=== PATIENT | male | born 1960 | race Caucasian/White ===

== ENCOUNTER 2023-04-16 06:53 | Observation (INO) ==
--- NOTE | 2023-04-06 10:13 | Anesthesiology Consultation ---
Date of Service April 06, 2023 Assessment & Plan (1) Encounter for pre-operative examination: - COVID screening: Per assessment on 04/03: No known COVID-19 positive contacts or current COVID-19 related symptoms. Travel screen negative. Patient vaccinated. At surgeon discretion if preop Covid testing being done. - Outpatient joint assessment: Pt currently scheduled for inpatient pathway. If surgeon requests review for outpatient joint pathway, patient is an acceptable candidate for outpatient joint program from anesthesia standpoint. Chart Review Chart Review: Acceptable Risk for Surgery and Patient NOT seen in Pre Admission Testing History Surgery Operation Date: 04/16/23 07:15 Proposed Procedures p Left Anatomic Total Shoulder Replacement, Open Biceps Tenodesis - Cole Olivia MD Height/Weight Height: 6 ft 2 in Weight: 113.398 kg Allergies Allergy/AdvReac Type Severity Reaction Status Date / Time Penicillins Allergy Unknown Hives Verified 04/03/23 13:45 Medications Home Medications Medication Instructions Recorded Confirmed Last Taken fluticasone propionate 50 2 spray intranasal QAM PRN Nasal 12/29/22 04/03/23 Unknown mcg/actuation nasal Congestion spray,suspension celecoxib 200 mg capsule 200 mg PO DAILY PRN pain #30 caps 02/04/23 04/03/23 Unknown Past Medical History Medical History Dyslipidemia Elevated blood-pressure reading without diagnosis of hypertension Monitored History of COVID-19 2021- low grade fever; resolved Hx of tear of meniscus of knee joint surgical repair Snores no sleep study done Past Family History Family History Other No family history of adverse response to anesthesia Past Surgical History Surgical History History of tonsillectomy and adenoidectomy Hx of colonoscopy Hx of nasal polypectomy Hx of removal of cyst x 2 Social History Smoking Status: Former smoker tobacco type: cigarettes Smoking End Date: quit 40 yrs ago Hx Alcohol Use: Yes alcohol intake frequency: a few times a week Hx Substance Use: No substance use type: does not use Lab Results Anesthesia Preop Results Results Anesthesia Widget: WBC 8.65 K/ul (4.8-10.8) 04/03/23 Hgb 14.3 g/dl (14.0-18.0) 04/03/23 Hct 42.9 % (42.0-52.0) 04/03/23 Plt 253 K/uL (130-400) 04/03/23 Na 137 mmol/L (136-145) 04/03/23 K 3.8 mmol/L (3.5-5.1) 04/03/23 Cl 103 mmol/L (98-107) 04/03/23 CO2 27 mmol/L (21-32) 04/03/23 BUN 19 mg/dl (6-23) 04/03/23 Creat 0.78 mg/dl (0.6-1.4) 04/03/23 Glucose Level 93 mg/dl (70-99(Fasting)) 04/03/23 Testing Electrocardiogram Date: 04/03/23 NSR with sinus arrhythmia at 60bpm. Normal ECG.
[~2023-04-16 06:53] MED LIST: BUPIVACAINE 0.5 % 5 MG/1 ML PF 10ML VIAL ONE; LR 15ML/HR IV SCH; LR 60ML/HR IV SCH; ceFAZolin 2000MG 2,000 MG/15 ML SYR IV SCH
--- NOTE | 2023-04-16 07:13 | History & Physical Report ---
Date of Service April 16, 2023 Assessment & Plan (1) Glenohumeral arthritis: This morning, we reviewed the informed consent reviewed the plan for anatomic shoulder arthroplasty. All questions were answered. Informed consent was confirmed. He wants to proceed. History of Present Illness Chief Complaint: Left shoulder pain Primary Care Provider: Martin Tilley 62-year-old otherwise healthy and active male with chronic and progressive left shoulder pain related osteoarthritis. Presents today with the intention to proceed with the proposed anatomic total shoulder arthroplasty that we discussed on March 04 in clinic. No changes to his health history. Allergies Allergy/AdvReac Type Severity Reaction Status Date / Time Penicillins Allergy Unknown Hives Verified 04/03/23 13:45 Home Medications Medication Instructions Recorded Confirmed Type fluticasone propionate 50 2 spray intranasal QAM PRN Nasal 12/29/22 04/03/23 History mcg/actuation nasal Congestion spray,suspension celecoxib 200 mg capsule 200 mg PO DAILY PRN pain #30 caps 02/04/23 04/03/23 Rx Past Med/Surg History Medical History Dyslipidemia Elevated blood-pressure reading without diagnosis of hypertension Monitored History of COVID-19 2021- low grade fever; resolved Hx of tear of meniscus of knee joint surgical repair Snores no sleep study done Surgical History History of tonsillectomy and adenoidectomy Hx of colonoscopy Hx of nasal polypectomy Hx of removal of cyst x 2 Family History Other No family history of adverse response to anesthesia Social History Smoking Status: Former smoker Smoking End Date: quit 40 yrs ago; Second Hand Exposure: No; Tobacco Cessation Education Requested by Patient: No Hx Alcohol Use: Yes Alcohol Intake Frequency: 2-4 x/Month Hx Substance Use: No Preferred Language: Czech Communication Ability: Effective Visual Impairment: No Limitations Hearing Ability: Normal Medical Coder Required: No Beliefs That Will Affect Care: None Current Living Situation: Spouse Other Information That Helps Us Care for You: No Feels Safe at Home: Yes Safety Concerns: Feels Safe At This Time Assistive Devices: Glasses Review of Systems All systems reviewed & are unremarkable except as noted in HPI & below. Physical Exam Left shoulder: No overlying skin changes. Exam is unchanged from the March 04 clinic visit. Neurovascular intact. Constitutional WD/WN, vitals as above Respiratory normal respiratory effort; no respiratory distress Cardiovascular Extremities: normal capillary refill; no edema Chest (Breasts) Chest: normal inspection of chest Skin no rashes, warm and dry Psychiatric A+Ox3, euthymic affect Results & Data Results & Data Laboratory Results . Diagnostic Findings . PG Care Time/CCT Total # of Minutes Spent Total Time Spent with Patient: Total time spent is greater than 50% in coordination of care (as documented) at patient's floor/unit and/or counseling patient: Coding Level of Care Code None Diagnoses Glenohumeral arthritis M19.019
[2023-04-16] MEDS ORDERED: ePHEDrine sulfate 50 MG/ML AMP IV PRN (07:24)
[2023-04-16] MEDS ORDERED: ONDANSETRON INJ 2 MG/ML 2 ML VIAL IV PRN ×2 (07:24→16:42)
[2023-04-16] MEDS ORDERED: fentaNYL citrate PF 100 MCG/2 ML VIAL IV PRN (07:24)
[2023-04-16] MEDS ORDERED: ATROPINE SULFATE 0.1 MG/ML 10ML SYR IV PRN (07:24)
[2023-04-16] MEDS ORDERED: fentaNYL citrate PF 100 MCG/2 ML VIAL ONE (07:36)
[2023-04-16] MEDS ORDERED: PROPOFOL IV EMULSION 10 MG/ML 20 ML VIAL IV ONE ×2 (07:36→12:14)
[2023-04-16] MEDS ORDERED: ONDANSETRON INJ 2 MG/ML 2 ML VIAL ONE ×2 (07:36→11:59)
[2023-04-16] MEDS ORDERED: ROCURONIUM BROMIDE 10 MG/ML 5 ML VIAL IV ONE (07:36)
[2023-04-16] MEDS ORDERED: DEXAMETHASONE SOD INJ 4 MG/ML VIAL ONE (07:36)
[2023-04-16] MEDS ORDERED: MIDAZOLAM HCL 1 MG/ML 2ML VIAL ONE (07:36)
[2023-04-16] MEDS ORDERED: LIDOCAINE 2% 2 ML VIAL/AMP(20MG/ML) INFIL ONE (07:36)
[2023-04-16] MEDS ORDERED: PHENYLEPHRINE HCL 10 MG/ML VIAL ONE (11:39)
[2023-04-16] MEDS ORDERED: ePHEDrine sulfate 50 MG/ML AMP ONE ×4 (11:39→12:02)
[2023-04-16] MEDS ORDERED: SUGAMMADEX SODIUM 200 MG/2 ML VIAL IV ONE (12:00)
[2023-04-16] MEDS ORDERED: ceFAZolin 2000MG 2,000 MG/15 ML SYR IV ONE (12:36)
[2023-04-16] MEDS ORDERED: oxyCODONE HCL IR 5 MG TAB (IMMEDIATE RELEASE) PO PRN ×2 (12:38)
[2023-04-16] MEDS ORDERED: HYDROmorphone INJ 0.5 MG/0.5 ML SYR IV PRN ×2 (12:38)
--- NOTE | 2023-04-16 12:48 | Post Operative Brief Note ---
PG Immediate Post Op with CF Date of Surgery April 16, 2023 Pre & Post Diagnosis Operation Date: 04/16/23 08:15 Pre-Op Diagnosis: Left Glenohumeral Arthritis, Biceps Tendonitis Post-Op Diagnosis: Left Glenohumeral Arthritis, Biceps Tendonitis I identified the patient and participated in the time-out.: Yes Procedure Operation Date: 04/16/23 08:15 Actual Procedures p Left Anatomic Total Shoulder Replacement, Cemented; Left Shoulder Open Biceps Tenodesis(Left) - Cole Olivia MD Surgeon Cole Olivia MD Metal Welder Laboratory Secretary Estimated Blood Loss 100 Findings Consistent with Post-Op Diagnosis Specimens Specimen Description: A. Left shoulder humeral head
--- NOTE | 2023-04-16 13:29 | Anesthesiology Progress Note ---
Date of Service April 16, 2023 Anesthesia Post Procedure Vital Signs Vital Signs: Temp Pulse Resp BP Pulse Ox O2 Del Method O2 Flow Rate 04/16/23 13:20 97.2 F L 91 H 20 120/81 95 Room Air 04/16/23 13:10 91 H 19 134/74 95 Nasal Cannula 2 04/16/23 13:00 90 16 123/76 96 Nasal Cannula 3 04/16/23 12:50 87 16 130/76 98 Nasal Cannula 3 04/16/23 12:42 96.8 F L 82 17 132/80 97 Nasal Cannula 3 04/16/23 08:18 60 20 144/82 H 97 Room Air 04/16/23 07:16 97.7 F 66 22 152/89 H 96 Room Air Transfer of Care Handoff Completed per policy Notes Mental Status: alert / awake / arousable and participated in evaluation Patient Amnestic to Procedure: Yes Nausea / Vomiting: adequately controlled Pain: adequately controlled Airway Patency, RR, SpO2: stable & adequate BP & HR: stable & adequate Hydration State: stable & adequate Anesthetic Complications: no major complications apparent and Pt Satisfied with anesthetic care
[2023-04-16] MEDS ORDERED: bisacodyL 10 MG SUPP PR PRN (16:42)
[2023-04-16] MEDS ORDERED: MAGNESIUM HYDROXIDE SUSP 30 ML UDC PO PRN (16:42)
[2023-04-16] MEDS ORDERED: diphenhydrAMINE 50 MG/ML VIAL IV PRN (16:42)
[2023-04-16] MEDS ORDERED: diphenhydrAMINE Capsule 25 MG CAP PO PRN (16:42)
[2023-04-16] MEDS ORDERED: NALOXONE HCL 0.4 MG/1 ML VIAL/CARP IV PRN (16:42)
[2023-04-16] MEDS ORDERED: METOCLOPRAMIDE HCL INJ 5 MG/ML 2 ML VIAL IV PRN (16:42)
--- NOTE | 2023-04-16 17:03 | XRay Report ---
XR shoulder LT 1V CLINICAL HISTORY: LEFT TOTAL SHOULDER POST OP TECHNIQUE: 1 views of the left shoulder were obtained. Comparison: Comparison is made to CT shoulder 03/12/2023 FINDINGS: Patient is status post shoulder arthroplasty with expected postsurgical changes including soft tissue swelling and subcutaneous emphysema. No periarticular lucency or hardware fracture is seen. IMPRESSION: Expected postoperative appearance status post placement of shoulder arthroplasty. ACT 112: Negative or not required by law. Electronically signed by: Ashok Krause M.D. 04/16/2023 5:02 PM
[2023-04-16] MEDS: ASCORBIC ACID 500 MG TAB PO SCH (18:15)
--- NOTE | 2023-04-16 19:22 | Operative Report ---
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 EXAMINATION UNDER ANESTHESIA: Preoperative exam under anesthesia revealed the followin degrees of forward flexion, 40 degrees external rotation at the side, 80 degrees of abduction, 40 degrees of external rotation and 20 degrees of internal rotation with the arm abducted. Several loose bodies were taken out of the axillary pouch. Postoperatively, range of motion parameters after implantation of prosthesis revealed a stable prosthesis with range of motion parameters as follows: 130 of forward flexion, 60 of external rotation at the side -45 to subscap repair tension, 120 of abduction, 90 of external rotation with the arm abducted, 20 of internal rotation with the arm abducted. The patient's safe range of motion included the ability to get to the back of the head. Internal rotation to the belly without significant tension. Specimens Humeral head for pathology Drains none Anesthesia Type General Regional Complications none Disposition Accompanied Patient To Recovery: No Disposition: Recovery Room Indications 62-year-old male with chronic and progressive shoulder pain consistent with glenohumeral arthritis. He had maximized nonoperative measures, was interested in more definitive treatment. I reviewed the risks, benefits, expected outcomes, required rehabilitation, techniques, and alternatives to shoulder arthroplasty. After discussion, he is interested in proceeding. Informed consent was obtained in the clinic. Description of Procedure The patient was identified in the preoperative holding area. The operative extremity was marked. Regional block was administered by Anesthesia. The patient was then brought to the operating room and placed supine. Preliminary time-out procedure was performed. All were in agreement. General endotracheal anesthesia was induced without any issues. The patient was sat up in around 40-45 degrees of inclination in the beachchair position. Exam under anesthesia was performed confirming the above findings. Preoperative antibiotics were administered. Sequential compressive devices were placed on the bilateral lower extremities for DVT prophylaxis. Bony prominences were inspected, well-padded and free of any evidence for peripheral nerve compression. The operative upper extremity was then prepped and draped in a normal standard fashion, with use of a padded barclay stand. Prior to incision, a second time-out procedure was performed confirming the patient, site, laterality and the procedure. All were in agreement. 1. Right shoulder open anatomic total shoulder replacement with standard size 5 glenoid component with trabecular metal post and with patient specific guide: A deltopectoral incision was utilized. Incision was carried out sharply and with electrocautery through the skin and subcutaneous tissues. The deltopectoral interval was developed. The cephalic vein was taken medially. Subdeltoid space was developed bluntly. A deltoid brown retractor was placed to retract the deltoid laterally and superiorly. 1 cm of the superior border of the pectoralis major tendon insertion site was released in standard fashion to improve exposure. Clavipectoral fascia was removed with electrocautery. Extensive subacromial bursitis was encountered and this was completely removed with a Bovie. The lateral aspect of the conjoined tendon was then followed to its insertion site on the coracoid. The conjoined tendon was retracted medially. The biceps tendon was identified, enlarged consistent with tendinopathy. It was released from the sheath using a Bovie and followed up i nto the rotator interval. A tenodesis was performed to the pectoralis major tendon as will be discussed in further detail below. A sharp Hohmann retractor was then placed into the interval and into the joint. Subscapularis tendon was still present and attached on the lesser tuberosity. The articular surface of the humeral head could be appreciated. The subscapularis tendon was then tagged with two ZB Max Braid sutures to gain control. [A subscapularis peel was performed to release the entirety of the subscap with the capsule. Inferior capsular tissue was then released. The humeral head dislocated with successive extension and external rotation. Humeral neck releases were performed electrocautery with external rotation and a Hohmann retractor posteriorly to forward subluxate the humeral head. Inferior neck osteophytes were released all the way to 7:00 The rotator cuff insertion was without significant pathology. There was no evidence of tears. The subscapularis had been in good condition. The biceps tendon had evidence of tenosynovitis, impingement, and inflammatory degeneration. The top of the humeral head was identified. A starting awl was used sound the humeral canal. The bone quality was moderate. We opted to set the retroversion of the humeral cut at around 30 degrees of retroversion to match ramona retroversion. The guide was fixed with 2 pins after adjustment for positioning. The humeral head resection was then made in parallel fashion to the guide. Sequential reaming was carried out starting with 4 mm broach. Successive trial broaches were then broached up to a size 18, which gave us excellent press-fit. The trial stem was left in place. Humeral protecting cap was then placed. We then proceeded over to the glenoid. An anterior glenoid neck retractor was placed. The MGHL and SGHL were released off of the muscular portion of the subscapularis being mindful of palpating and identifying the axillary nerve to make sure it was free of injury during releases. Next, the interval between the IGHL and the muscular portions of the subscapularis was identified. My finger was on the axillary nerve to protect it during releases. The IGHL was then released up to around the 7 o'clock position. Several loose bodies were pulled out of the axillary recess at this point. A blunt retractor was then placed to retract the humerus posteriorly. A sharp Hohmann retractor was placed at the 12 o'clock position. The glenoid deformity was evaluated with assistance with the bone model. Extraneous capsulolabral tissue was dissected to reveal the bone anatomy. This confirmed our decision to proceed with preoperative virtual planning. The arm was placed around 30 degrees of flexion, 90 degrees of external rotation and slight adduction to distract the humerus posteriorly and inferiorly in line with her humeral cut that was protected. Labrum was circumferentially removed including the biceps tendon stump with a Bovie. A patient specific guide was used to place an initial guide pin, followed by the more superior pin. The patient specific guide was then removed. The custom reamer guide was placed on the superior pin and the reamer was brought down the central pin. Reaming was conducted based on the guide and preoperative plan for implant size. Irrigation was used and we confirmed adequate reaming. The central post drill was then brought down the central pin. This was irrigated again. The drill guide for the pegs was placed down over the pin and locked into the socket for the central post. The peg positions were then drilled, and this guide was removed. Copious irrigation was performed to irrigate out the joint. The trial according to our preoperative plan was placed. It had good fit to the glenoid and cover age. The trial was then removed. The final implant was opened on the back table. Cement mixing was commenced. Mixing 1 for 60 seconds. Once the cement was of good consistency, the backside of the polyethylene implant was coated with a thin layer, ensuring not to put any on the central trabecular metal post. The pressurized cement gun was used to place cement in each of the peg holes under pressure. Any cystic cavitary lesions were also filled. The final glenoid implant was then introduced and deployed into its socket and peg holes. It was tamped down with the impactor and held firmly while the cement cured. Irrigation was conducted around. Extraneous cement was curetted from the margins and removed from the wound. Humerus was then brought back into view with external rotation, deltoid brown retractor and multiple blunt Homans. The trial humeral head matching are measured humeral head cut was then fixed onto the trial broach. I rotated the head to cover the cut surface using the eccentricity of the system. It was tightened in place. The humerus was then reduced onto the glenoid with the arm in abduction and external rotation. The arm was taken out of the brady, taken through a physiologic range of motion. No evidence for impingement. No evidence for kick off. Appropriate capsular tension was found. About 50% posterior translation was present with posterior directed force. Thus, the trials would be a most appropriate for stability. Next, the trial humeral trial components were removed. The final stem prosthesis was then brought onto the field. The head was dialed into into the eccentricity that matched our trial. The head was tamped on the back table to secure the offset that match the desired humeral cut coverage. Humeral canal was copiously irrigated. 3 2.0 mm drill holes were then placed in the bicipital groove just lateral to the lesser tuberosity. The lesser tuberosity footprint drill hole was placed for medial passage. Angel [employer]omet max braid suture was passed through for later subscapularis repair.. The final humeral component was then brought back on to the field and seated firmly into the humerus, securing our subscap sutures. Excellent press-fit was achieved. The humeral head component was then introduced onto the trunnion, and the Aguayo taper was locked on using a mallet and impactor. Thus, this completed the humeral component implantation. With the final components in place, humeral component was then reduced onto the glenoid and final postoperative range of motion assessment was performed. Stability confirmed. Thorough pulse lavage irrigation was performed to evacuate all debris and lavage the capsule, surrounding soft tissues, and components. Dilute Betadine irrigant was then run through the joint and left in place for several minutes while we prepared for closure and subscap repair. The Rich Retractor was placed immediately just inside the conjoint tendon, with the deltoid retracted laterally. The arm was placed in internal rotation. The subscapularis was then repaired to the humerus using a Jaswant-Den configuration and the 3 high-grade double tape sutures that were passed about the lesser tuberosity before implantation. The subscap repair had appropriate tension. External rotation about 45 degrees was achieved before excessive tension developed. This completed the open total shoulder replacement. Final lavage with a dilute Betadine was performed. This was followed by copious normal saline irrigation. 2. Open biceps tenodesis: As dictated above, tendinopathy of the biceps tendon was noted. A tenodesis was opted. The tendon was released from the bicipital sheath using a Bovie and then tenodesed to the pectoralis major tendon using a two #2 Arthrex FiberWire stitches in a [id number] fashion. The tendon was then followed up as proximal as could be visualized and then tenotomized. Remaining stump was removed just proximal to the tenodesis site. This completed the open biceps tenodesis. The wound was copiously irrigated. The deltopectoral incision was closed with interrupted #1 Vicryl stitches.. Subcutaneous adipose tissues were closed with #1 Vicryl suture in buried, interrupted fashion. Dermal closure was accomplished using buried knot 20 Vicryl. Final skin closure was with miracle. The wound was dressed with sterile Xeroform, sterile gauze, ABDs, and contained by Tegaderm dressings. The patient was placed in a postoperative sling and turned over to the anesthesia team. The patient tolerated procedure well, was extubated in the operating without complication, and transferred to the PACU in stable condition. DISPOSITION: The patient will remain in sling for a total of 6 weeks. Hand, wrist, and elbow range of motion exercises may be initiated. After 6 weeks, the sling will be discontinued. Formal therapy will be initiated starting with gentle passive range of motion and active range of motion. No strengthening kyala l be permitted before 12 weeks. When strengthening is allowed, only gentle strengthening will be allowed. I attest to the content of the Intraoperative Record and any orders documented therein. Any exceptions are noted below.
[2023-04-16] MEDS: ASPIRIN 81 MG ECTAB PO SCH (20:23)
[2023-04-16] MEDS: DOCUSATE SODIUM 100 MG CAP PO SCH (20:23)
[2023-04-16] MEDS ORDERED: SENNA 8.6 MG TAB PO SCH (21:00)
[2023-04-16] MEDS: ACETAMINOPHEN 500 MG TAB PO SCH (21:53)
[2023-04-16] MEDS: ceFAZolin 1000MG 1,000 MG/7.5 ML SYR IV SCH (21:54)
[2023-04-17] MEDS: ACETAMINOPHEN 500 MG TAB PO SCH (05:58)
[2023-04-17] MEDS: ceFAZolin 1000MG 1,000 MG/7.5 ML SYR IV SCH (05:59)
[2023-04-17 07:49] LABS: Basophils # (auto) 0.03 K/uL (0-0.2); Basophils % (auto) 0.3 %; Eosinophils # (auto) 0.02 K/uL (0-0.50); Eosinophils % (auto) 0.2 %; Immature Granulocytes # (auto) 0.06 K/uL (0.01-0.20); Immature Granulocytes % (auto) 0.5 %; Lymphocytes # (auto) 2.42 K/uL (1.2-3.4); Lymphocytes % (auto) 20.6 %; Mean Corpuscular Hgb Conc 34.3 g/dL (32.0-36.0); Mean Corpuscular Volume 90.4 fL (80.0-100.0); Monocytes # (auto) 1.14 K/uL (0.11-0.59); Monocytes % (auto) 9.7 %; Neutrophils # (auto) 8.09 K/uL (1.40-6.50); Neutrophils % (auto) 68.7 %; Platelet Count 251 K/uL (130-400); RDW Coefficient of Variation 13.8 % (11.5-14.5); RDW Standard Deviation 45.5 fL (36.4-46.3); Red Blood Count 3.87 M/uL (4.70-6.10); White Blood Count 11.76 K/ul (4.8-10.8)
[2023-04-17 07:58] LABS: BUN Creatinine Ratio 22.7 (10-20); Calcium 8.2 mg/dl (8.6-10.3); Creatinine Clr Calc Pharmacy 137.9 ml/min; Est GFR (African American) 113.2 ml/min; Est GFR (Non-African American) 97.6 ml/min; Potassium 4.2 mmol/L (3.5-5.1)
[2023-04-17] MEDS ORDERED: MULTIVITAMIN TAB PO SCH (09:00)
[2023-04-17] MEDS: ASPIRIN 81 MG ECTAB PO SCH (09:01)
[2023-04-17] MEDS: DOCUSATE SODIUM 100 MG CAP PO SCH (09:01)
[2023-04-17] MEDS: ASCORBIC ACID 500 MG TAB PO SCH (09:02)
--- NOTE | 2023-04-18 11:19 | Discharge Summary ---
Date of Service April 18, 2023 Admission HPI (Per Admitting) 62-year-old otherwise healthy and active male with chronic and progressive left shoulder pain related osteoarthritis. Presents today with the intention to proceed with the proposed anatomic total shoulder arthroplasty that we discussed on March 04 in clinic. No changes to his health history. Admission Exam (Per Admitting) Left shoulder: No overlying skin changes. Exam is unchanged from the March 04 cl inic visit. Neurovascular intact. Principal Diagnosis Same as "Discharge Diagnosis" noted below under Discharge Instructions. Discharge Exam LUE: Dressing c/d/i. Block remains in effect, spotty. +FE/FF/TE/HI. Sensation diffusely diminished. Discharge Data Procedures Performed Operation Date: 04/16/23 08:15 Actual Procedures p Left Anatomic Total Shoulder Replacement, Cemented; Left Shoulder Open Biceps Tenodesis(Left) - Cole Olivia MD Ordered Studies 04/16/23 05:00 US - OR guided needle placemen Routine Hospital Course (1) Glenohumeral arthritis: (2) History of left shoulder replacement: Plan Admitted from [facility] area due to anxiety and mild diaphoresis upon mobilization to feet. Symptoms resolved overnight. Found to be stable for discharge on POD1 to outpatient rehab. PG Care Time/CCT Total # of Minutes Spent Total Time Spent with Patient: Total time spent is greater than 50% in coordination of care (as documented) at patient's floor/unit and/or counseling patient: Discharge Plan Discharge Items Patient Disposition: Home - Self-Care Reason For Visit: Glenohumeral Arthritis Discharge Diagnosis: same Activity: Per Instructions section Non-emergency contact: Surgeon Call non-emergency contact if: you have any medication questions, your pain is not controlled and your temperature is above 101 Follow-up/Referrals: Cole Olivia MD [Surgeon] - Martin Tilley M.D. [Primary Care Provider] - Diet: Regular Addtl Attending Provider Instructions: Cole Olivia M.D. [facility] [address], [place] [address] Dressing Care: Leave the dressing in place for 3 days. After 3 days you may remove the dressing. If the incision is not draining, you do not have to re-cover the dressing. Elmer will be removed at your postop appointment. If there is a little bit of drainage or if the wound is bothersome with your clothing, cover the incision with a dry dressing. Do not use any ointments or topical medications unless directed by your surgeon. Do not submerse the incisions in water no pools, oceans, lakes, jacuzzis, bathtubs, etc for at least 3 weeks. Showering: After 3 days you may remove the dressing and shower normally. Allow soap and water to run over the incision and pat dry. Do not scrub or soak the incision. Activity and Therapy Recommendations: - If you are not using home therapy then Outpatient Physical Therapy should start about 3-5 days from your day of surgery. Therapy will last about 8-12 weeks - Wear your sling for 3 weeks, unless otherwise instructed. You may remove your sling to shower and to dress, but otherwise, you should be in your sling at all times, including while sleeping - The shoulder replacement is very stable and you can use your hand while in the sling - You were shown a series of exercises in the hospital. Do these exercises daily including the exercises you were shown in physical therapy. - NO EXTERNAL ROTATION - do not reach out to your side. Pain Control: Use frequent ice to reduce amount of pain medications. Use for 30 minutes per hour. Do not leave in place longer than 30 minutes, especially when your block is in effect, to prevent frostbite or thermal injury. Medications: - Opioid: You will likely be sent home with a prescription for the opioid pain medication. Use as directed, as needed. - Other medications may be prescribed for specific circumstances. If you have any questions, please call the office at . - Resume previous home medications unless otherwise instructed Follow-Up: 1. Ortho Clinic with Dr. Olivia: You should be seen in 10-14 days. Please call immediately to schedule if you do not have an appointment. Pending Studies at Discharge: No Stand-Alone Forms: Anesthesia/Sedation, Adult, My [facility] Medications and DC Order Prescriptions: New ondansetron 4 mg tablet,disintegrating 4 mg PO Q6H PRN (Reason: nausea and vomiting) Qty: 10 0RF oxycodone 5 mg tablet 5 - 10 mg PO Q4H MDD 6 tablets PRN (Reason: pain) Qty: 20 0RF Continued celecoxib 200 mg capsule 200 mg PO DAILY PRN (Reason: pain) Qty: 30 2RF Rx Instructions: Take with food fluticasone propionate 50 mcg/actuation spray,suspension 2 spray intranasal QAM PRN (Reason: Nasal Congestion) Discharge Orders: Discharge Order (Routine); Ordered 04/17/23 Ordered By: Cole Orr/Other Patient Handouts: DVT Post Op Prevention, Total Shoulder Replacement Surgery Admission Data Admit Date/Time: 04/16/23 16:42 Attending Provider: Cole Olivia Admit Provider: Cole Olivia Primary Care Provider: Martin Tilley Other Interventions: Discharge Summary Assessment (RN) Last Done: 04/17/23 09:08
== END 2023-04-17 10:42 | disposition home or self-care (01) ==
LOC: ASU 06:53 → 3W 06:53

== ENCOUNTER 2024-12-30 07:52 | Observation (INO) ==
--- NOTE | 2024-09-09 10:54 | PAT Medication Instructions ---
Medication Instructions Date of Service September 09, 2024 Home Medications fluticasone propionate 50 mcg/actuation nasal spray,suspension 2 spray intranasal QAM PRN Nasal Congestion furosemide 20 mg tablet 20 mg PO QAM lisinopril 10 mg tablet 10 mg PO QAM DO NOT take the morning of surgery furosemide 20 mg tablet 20 mg PO QAM lisinopril 10 mg tablet 10 mg PO QAM Take morning of surgery With a small sip of water, OTHERWISE NOTHING TO EAT OR DRINK AFTER MIDNIGHT: fluticasone propionate 50 mcg/actuation nasal spray,suspension 2 spray intranasal QAM PRN Nasal Congestion (if needed) Take evening before surgery fluticasone propionate 50 mcg/actuation nasal spray,suspension 2 spray intranasal QAM PRN Nasal Congestion (if needed) Other Notes If you have any questions please call us at [phone] or [phone] or [phone] or [phone]
--- NOTE | 2024-09-14 11:30 | Anesthesiology Consultation ---
Date of Service September 14, 2024 Assessment & Plan (1) Encounter for pre-operative examination: - surgery was cancelled by Dr. Lopes's office. Will complete full PAT questions when surgery is re-scheduled. - Patient and report concern with left leg swelling- notes that is similar to his right leg DVT 11/2023. He denies chest discomfort, shortness of breath or palpitations. He states was evaluated at [facility] earlier today and prescribed cefodroxil, patient's requests ultrasound of leg due to concern for DVT. Left distal leg is edematous, warm to touch, redness of calf; negative Mateus sign. Consideration given to outpatient doppler surgeon's office advised could be ordered by Dr. Lopes, however, O2 checked 3 times including on different fingers demonstrated O2 90-91%. Patient voluntarily took several deep breaths improving O2 to 95%, however soon reduced to and then remained at 90%. Patient remained asymptomatic, talking and joking in clinic. He was instructed on need for further evaluation in the ER and was agreeable. He was transported to the [facility] ER via wheelchair and detailed report given by myself at check-in and by Jagruti Downing PA-C to kary Salguero RN while patient was being transported. Surgeon's office made aware. Chart Review Chart Review: Pending: Refer to Additional Notes / Consult section and Patient seen in Pre Admission Testing Teaching & Discussion Pre-Anesthesia Teaching/Discussion Notes: Instructed NPO after midnight before surgery, except medications with 15 cc of water. Medication instructions provided according to the PAT guidelines. History Surgery Operation Date: 10/07/24 13:10 Proposed Procedures p Left Total Knee Arthroplasty - Martin Lopes, Height/Weight Height: 6 ft 3 in Weight: 127 kg Allergies Allergy/AdvReac Type Severity Reaction Status Date / Time Penicillins Allergy Intermediate Hives Verified 09/14/24 17:37 Medications Home Medications Medication Instructions Recorded Confirmed Last Taken furosemide 20 mg tablet 20 mg PO QAM 09/06/24 09/14/24 09/14/24 lisinopril 10 mg tablet 10 mg PO QAM 09/06/24 09/14/24 09/14/24 apixaban 5 mg tablet (Eliquis) 5 mg PO BID 30 days #74 tabs 09/14/24 Unknown cefadroxil 500 mg capsule 0 mg PO BID 09/14/24 09/14/24 Unknown Past Medical History Medical History (Updated 09/14/24 @ 17:23 by ROSANNE Wolfe) DVT (deep venous thrombosis) (~11/2023) right leg-no longer on anticoagulation Dyslipidemia Elevated blood-pressure reading without diagnosis of hypertension Monitored History of COVID-19 (~2021) low grade fever; resolved Nausea after anesthesia after recent left shoulder surgery 04/2023, [facility] Snores planning for sleep study 09/2024 Past Family History Family History Other No family history of adverse response to anesthesia Past Surgical History Surgical History History of left shoulder replacement 04/16/23 History of tonsillectomy and adenoidectomy Hx of colonoscopy Hx of nasal polypectomy Hx of removal of cyst x 2 Social History Smoking Status: Former smoker tobacco type: cigarettes Do You Dip or Chew Tobacco: No (quit 8-9 years ago; advised) Smoking End Date: 40 years ago Hx Alcohol Use: Yes Alcohol type: beer alcohol intake frequency: other Alcohol Intake Frequency Comment: 3-4 beers/week Hx Substance Use: No substance use type: does not use Physical Exam Vital Signs Vitals BP 136/91 P 86 TEMP 97.5 SP02 90-91% on RA RESP 18 Physical Patient resting comfortably in chair in no acute distress, alert and oriented, responding appropriately throughout visit Full cervical extension range of motion without pain Lungs: normal respiratory effort. Good air movement, clear throughout to auscultation, no adventitious breath sounds Cardiac: regular rate and rhythm, no murmurs noted Lower extremities: edematous left lower leg, warm to touch, redness of calf; negative Mateus sign Lab Results Anesthesia Preop Results Results Anesthesia Widget: WBC 10.09 K/ul (4.8-10.8) 09/14/24 Hgb 14.8 g/dl (14.0-18.0) 09/14/24 Hct 45.0 % (42.0-52.0) 09/14/24 Plt 283 K/uL (130-400) 09/14/24 Na 141 mmol/L (136-145) 09/14/24 K 3.8 mmol/L (3.5-5.1) 09/14/24 Cl 103 mmol/L (98-107) 09/14/24 CO2 30 mmol/L (21-32) 09/14/24 BUN 18 mg/dl (6-23) 09/14/24 Creat 0.88 mg/dl (0.6-1.4) 09/14/24 Glucose Level 83 mg/dl (70-99(Fasting)) 09/14/24 PT 10.7 Seconds (9.0-12.0) 09/14/24 PTT 25 Seconds (21-31) 09/14/24 INR 1.0 (0.9-1.1) 09/14/24 Blood Type A Positive 09/14/24 Antibody Screen NEGATIVE 09/14/24 Testing Chest X-Ray Date: 09/14/24 *1view* No acute cardiopulmonary findings. Other Testing Chest CTA 09/14/24 Unremarkable CTA of the chest. No pulmonary emboli identified. Left LE DVT 09/14/24 Subcutaneous edema. 7 cm Musa's cyst. Occlusive thrombus noted within the superficial femoral, popliteal and peroneal veins. No additional DVT identified. There are however additional occlusive long segment superficial venous varicosities in the medial lower leg. Likely acute DVT and SVT as above.
[~2024-12-30 07:52] MED LIST changes: +BUPIVACAINE 0.25% PF 30 ML VIAL ONE; -LR 15ML/HR IV SCH; -LR 60ML/HR IV SCH; -ceFAZolin 2000MG 2,000 MG/15 ML SYR IV SCH
[2024-12-30 08:58] LABS: Basophils # (auto) 0.11 K/uL (0.00-0.20); Basophils % (auto) 1.3 %; Eosinophils # (auto) 0.33 K/uL (0.00-0.50); Eosinophils % (auto) 3.8 %; Hematocrit (blood only) 42.2 % (42.0-52.0); Hemoglobin 13.9 g/dl (14.0-18.0); Immature Granulocytes # (auto) 0.03 K/uL (0.01-0.20); Immature Granulocytes % (auto) 0.3 %; Lymphocytes # (auto) 2.77 K/uL (1.20-3.40); Mean Corpuscular Hemoglobin 30.2 pg (25.0-34.0); Mean Corpuscular Hgb Conc 32.9 g/dL (32.0-36.0); Mean Corpuscular Volume 91.5 fL (80.0-100.0); Mean Platelet Volume 9.2 fL (9.4-12.4); Monocytes # (auto) 0.71 K/uL (0.11-0.59); Monocytes % (auto) 8.2 %; Neutrophils # (auto) 4.71 K/uL (1.40-6.50); Neutrophils % (auto) 54.4 %; Platelet Count 279 K/uL (130-400); RDW Coefficient of Variation 13.8 % (11.5-14.5); RDW Standard Deviation 46.2 fL (36.4-46.3); Red Blood Count 4.61 M/uL (4.70-6.10); White Blood Count 8.66 K/ul (4.8-10.8)
[2024-12-30] MEDS ORDERED: MIDAZOLAM HCL 1 MG/ML 2ML VIAL ONE (08:58)
[2024-12-30] MEDS ORDERED: PROPOFOL IV EMULSION 10 MG/ML 20 ML VIAL IV ONE ×2 (08:59→11:46)
[2024-12-30] MEDS ORDERED: ONDANSETRON INJ 2 MG/ML 2 ML VIAL ONE ×2 (09:00→11:23)
[2024-12-30] MEDS: LR 60ML/HR IV SCH (09:01)
[2024-12-30] MEDS: ACETAMINOPHEN 500 MG TAB PO SCH ×2 (09:01→14:29)
[2024-12-30] MEDS: FAMOTIDINE 20 MG TAB PO SCH (09:01)
[2024-12-30] MEDS: GABAPENTIN 300 MG CAP PO SCH (09:01)
[2024-12-30] MEDS: dexAMETHasone**PF** 10 MG/ML VIAL IV SCH (09:02)
[2024-12-30 09:16] LABS: BUN Creatinine Ratio 24.1 (10-20); Calcium 9.6 mg/dl (8.6-10.3); Creatinine Clr Calc Pharmacy 128.6 ml/min; Potassium 3.7 mmol/L (3.5-5.1)
--- NOTE | 2024-12-30 09:37 | History & Physical Bridge Note ---
Date of Service December 30, 2024 History & Physical Bridge Note I have examined the patient, reviewed the History & Physical and in the interval since the performance of the History & Physical I have noted the following changes of clinical significance: no changes noted
[2024-12-30 09:48] LABS: Partial Thromboplastin Ratio 0.9; Partial Thromboplastin Time 25 Seconds (21-31); Prothrombin Time 10.5 Seconds (9.0-12.0)
[2024-12-30] MEDS: TRANEXAMIC ACID 1,000 MG **IV Pre-op IV SCH (10:19)
[2024-12-30] MEDS: ceFAZolin 3000MG 3,000 MG/72.5 ML BAG IV SCH (10:32)
[2024-12-30] MEDS ORDERED: ATROPINE SULFATE 0.1 MG/ML 10ML SYR IV PRN (10:33)
[2024-12-30] MEDS ORDERED: ONDANSETRON INJ 2 MG/ML 2 ML VIAL IV PRN ×2 (10:33→13:43)
[2024-12-30] MEDS ORDERED: ePHEDrine sulfate 50 MG/ML AMP IV PRN (10:33)
[2024-12-30] MEDS ORDERED: fentaNYL citrate PF 100 MCG/2 ML VIAL IV PRN (10:33)
[2024-12-30] MEDS ORDERED: KETAMINE HCL 10MG/ML SYR ONE (10:35)
[2024-12-30] MEDS ORDERED: KETOROLAC 30 MG/ML VIAL ONE (10:52)
[2024-12-30] MEDS: ROPIV 0.5% 246mg, Ketorolac 30mg, EPINEPHrine 0.5mg in NSS INFIL SCH (11:04)
[2024-12-30] MEDS: ORTHO JOINT ANESTHETIC ONE (11:05)
[2024-12-30] MEDS: TRANEXAMIC ACID 1,000 MG **IV Intra-op IV SCH (11:31)
--- NOTE | 2024-12-30 11:38 | Operative Report ---
PG Post Operative Report Pre & Post Diagnosis Operation Date: 12/30/24 10:00 Pre-Op Diagnosis: Left Knee Oseoarthritis Post-Op Diagnosis: Left Knee Oseoarthritis I identified the patient and participated in the time-out.: Yes Procedure Operation Date: 12/30/24 10:00 Actual Procedures p Left Total Knee Arthroplasty(Left) - Martin Lopes DO Surgeon Martin Lopes DO Director Of Public Safety Thor Luna PA-C Estimated Blood Loss 50 Findings Consistent with Post-Op Diagnosis Specimens Left femoral and tibial bone Description of Procedure Implants used: I used a Angel Persona total knee arthroplasty system with a size 11 standard PS femur, G tibia, 34 oval patella, and a size 14 CPS polyethylene bearing. All components were cemented in place with Biomet cement. Mesfin hess [facility] for the above procedure. He was seen in the preoperative holding area and the operative extremity was identified and signed. He was given a preoperative antibiotic, TXA, a spinal anesthetic and an adductor nerve block. He was taken back to the operating room and laid on the table in supine position. He was given basic sedation. The operative knee was then prepped and draped in sterile fashion. A timeout was done, and the patient and the operative extremity was properly identified. A midline incision was made directly over the patella. Dissection was taken down to the extensor mechanism. A medial parapatellar arthrotomy was used. The medial retinaculum was released and the fat pad was mostly excised. The knee was flexed and the ACL, PCL, and meniscus were removed. A drill was sent down the center of the femoral canal followed by an intramedullary chata. Off that chata a distal femoral cutting block was placed. 9 mm was resected off the distal femur at 5 of valgus. A posterior referencing AP sizing guide was then placed on the distal femur. The femur measured to be a size 11. 2 drill holes were placed in 3 of external rotation. A 4-in-1 cutting block was then impacted into place. Anterior, posterior, and chamfer cuts were then made. The proximal tibia was then exposed. An external tibial alignment guide was placed. A tibial cut guide was then anchored in place and the proximal tibia was then resected. The posterior aspect of the knee was then opened up and any additional meniscus fragments and osteophytes were removed. The tibia measured to be a size G. The tibial plate was then placed in the appropriate rotation and the tibia was drilled and punched. Trial components were then placed. I used a size 14 CPS polyethylene insert. The knee was brought through a full range of motion and felt to be stable. The peg holes for the femoral component were then drilled. The patella was then everted and 9 mm was resected off the posterior aspect of the patella. The patella measured to be a size 34 oval. 3 peg holes were then drilled. A trial patella was placed. The knee was once again brought through a full range of motion and felt to be stable. Trial components were then removed. The surrounding soft tissues were injected with 100 cc of an orthopedic pain control cocktail. All components were then cemented into place with Biomet cement. The final polyethylene insert was then snapped into place. Once cement was dry the tourniquet was deflated. Hemos tasis was obtained. A dilute betadyne lavage was then done for 3 minutes. The joint was then irrigated with normal saline solution. The medial parapatellar arthrotomy was then closed with #1 Vicryl suture. The skin was closed with 2-0 Vicryl, 3-0V lock suture, and miracle. A soft compressive dressing was placed. He was then transferred to a hospital bed and taken to the postanesthesia care unit in stable condition. He tolerated the procedure well. Thor Luna PA-C, was present for the entire procedure. He was critical for patient positioning, prepping, draping, retraction exposure, wound closure and application of sterile dressing. I attest to the content of the Intraoperative Record and any orders documented therein. Any exceptions are noted below.
--- NOTE | 2024-12-30 12:44 | XRay Report ---
XR knee LT 1 or 2V routine CLINICAL HISTORY: Surgical Post Op COMPARISON: None FINDINGS: Left knee prosthesis shows no hardware complication. There is expected soft tissue gas. Sk in miracle are present. IMPRESSION: Unremarkable postoperative exam. ACT 112: Negative or not required by law. Electronically signed by: Beto Morales M.D. 12/30/2024 12:43 PM
[2024-12-30] MEDS ORDERED: MAGNESIUM HYDROXIDE SUSP 30 ML UDC PO PRN (13:43)
[2024-12-30] MEDS ORDERED: METOCLOPRAMIDE HCL INJ 5 MG/ML 2 ML VIAL IV PRN (13:43)
[2024-12-30] MEDS ORDERED: oxyCODONE HCL IR 5 MG TAB (IMMEDIATE RELEASE) PO PRN (13:43)
[2024-12-30] MEDS ORDERED: NALOXONE HCL 0.4 MG/1 ML VIAL/CARP IV PRN (13:43)
[2024-12-30] MEDS ORDERED: bisacodyL 10 MG SUPP PR PRN (13:43)
[2024-12-30] MEDS: KETOROLAC TROMETHAMINE 15 MG/ML VIAL IV SCH (14:27)
--- NOTE | 2024-12-30 14:31 | Anesthesiology Progress Note ---
Date of Service December 30, 2024 Anesthesia Post Procedure Vital Signs Vital Signs: Temp Pulse Pulse Resp BP Pulse Ox O2 Del Method 12/30/24 14:07 74 16 129/74 93 Room Air 12/30/24 13:15 63 18 127/74 97 Nasal Cannula 12/30/24 13:00 58 L 12 94/62 L 99 Nasal Cannula 12/30/24 12:45 53 L 14 107/60 97 Room Air 12/30/24 12:30 36.4 C L 67 17 113/69 95 Room Air 12/30/24 12:20 62 13 100/57 L 93 Room Air 12/30/24 12:10 74 17 109/64 99 Oxymask 12/30/24 12:04 36.7 C 90 18 109/67 96 Oxymask 12/30/24 08:25 36.4 C L 83 20 172/89 H 97 Room Air O2 Flow Rate 12/30/24 14:07 12/30/24 13:15 2 12/30/24 13:00 2 12/30/24 12:45 12/30/24 12:30 12/30/24 12:20 12/30/24 12:10 9 12/30/24 12:04 9 12/30/24 08:25 Pain Intensity Left Knee: Pain Intensity: 2 Transfer of Care Handoff Completed per policy Notes Mental Status: alert / awake / arousable and participated in evaluation Patient Amnestic to Procedure: Yes Nausea / Vomiting: adequately controlled Pain: adequately controlled Airway Patency, RR, SpO2: stable & adequate BP & HR: stable & adequate Hydration State: stable & adequate Neuraxial Anesthesia: was administered and sensory block is resolving Anesthetic Complications: no major complications apparent and Pt Satisfied with anesthetic care
[2024-12-30] MEDS: HYDROmorphone INJ 0.5 MG/0.5 ML SYR IV PRN (16:12)
[2024-12-30] MEDS: ceFAZolin 1000MG 1,000 MG/7.5 ML SYR IV SCH (17:28)
[2024-12-30] MEDS: SENNA 8.6 MG TAB PO SCH (20:57)
[2024-12-30] MEDS: DOCUSATE SODIUM 100 MG CAP PO SCH (20:58)
[2024-12-31 05:47] VITALS: RESP 18
[2024-12-31 07:08] VITALS: BP 125/72; PULSE 55; TEMP 97.9; O2SAT 95
[2024-12-31] MEDS: APIXABAN 5 MG TABLET PO SCH (08:16)
[2024-12-31] MEDS: MULTIVITAMIN TAB PO SCH (08:16)
[2024-12-31] MEDS: lisinopril 10 MG TAB PO SCH (08:16)
[2024-12-31] MEDS: BUMETANIDE 1 MG TAB PO SCH (08:16)
[2024-12-31] MEDS: dexAMETHasone 4 MG TAB PO SCH (08:16)
[2024-12-31] MEDS: FLUTICASONE FUROATE 100MCG 14 PUFFS/INHALER INH SCH (08:17)
--- NOTE | 2024-12-31 08:43 | Orthopedic Progress Note ---
Date of Service December 31, 2024 Assessment & Plan (1) Status post left knee replacement: (2) Aftercare following left knee joint replacement surgery: Plan 64-year-old gentleman POD# 1 s/p left total knee replacement, doing well overall. Pain is well-controlled. Medically stable. Postop x-rays well- appearing. He is neurologically intact. Plan: 1. DVT prophylaxis w/ TEDs, SCDs, Eliquis 5 mg daily. 2. PT/OT as tolerated. WBAT on the L LE. Encourage heel slides, SLR, full knee extension w/ quad sets. 3. Pain control doing well with current pain regimen. 4. Dressing change by nursing after PT/OT, prior to discharge. 5. Disposition - plan to D/C home w/ [facility] later today once cleared by PT/OT. 6. F/u 2 weeks post-op w/ orthopedics (Dr. Lopes's team), or as previously scheduled, for first post-op visit. Subjective Patient is POD# 1 s/p left total knee arthroplasty by Dr. Lopes on 12/22/2024. Patient says his pain is well-controlled this morning. Denies CP, SOB, N/V, L LE paresthesia. He has [facility] arranged to come to the house for therapy; he [facility]. Patient says that he will be ready to go home today. Review of Systems All systems reviewed & are unremarkable except as noted in HPI & below. Physical Exam GENERAL: AA&Ox3, NAD. Pleasant, affect is calm. Sitting in bed and appears comfortable. RESPIRATORY: Normal respiratory effort with no signs of distress. CHEST/AXILLA: Chest movement symmetrical. No deformities noted. CARDIOVASCULAR: No edema noted. SKIN: [place], warm and dry. MS/EXTREMITY: Knee dressing & JOSE LUIS wrap c/d/i. IRINA hose donned. + ankle dorsi/plantarflexion. NVI distally. Calf soft/NT. PT/DP pulses intact, 2+. Results & Data Results & Data Laboratory Results . Laboratory Results - last 48 hr 12/30/24 08:19 WBC 8.66 RBC 4.61 L Hgb 13.9 L Hct 42.2 MCV 91.5 MCH 30.2 MCHC 32.9 RDW Std Deviation 46.2 RDW Coeff of Parvez 13.8 Plt Count 279 MPV 9.2 L Immature Gran % (Auto) 0.3 Neut % (Auto) 54.4 Lymph % (Auto) 32.0 Hutchinson % (Auto) 8.2 Eos % (Auto) 3.8 Baso % (Auto) 1.3 Neut # (Auto) 4.71 Lymph # (Auto) 2.77 [place]inson # (Auto) 0.71 H Eos # (Auto) 0.33 Baso # (Auto) 0.11 Immature Gran # (Auto) 0.03 PT 10.5 INR 1.0 APTT 25 PTT Ratio 0.9 Sodium 142 Potassium 3.7 Chloride 106 Carbon Dioxide 29 Anion Gap 7 BUN 20 Creatinine 0.83 Est Cr Clr Drug Dosing 128.6 eGFR 97.13 BUN/Creatinine Ratio 24.1 H Glucose 98 Calcium 9.6 Blood Type A Positive Antibody Screen NEGATIVE Diagnostic Findings . Knee X-Ray 12/30/24 12:09 XR knee LT 1 or 2V routine CLINICAL HISTORY: Surgical Post Op COMPARISON: None FINDINGS: Left knee prosthesis shows no hardware complication. There is expected soft tissue gas. Skin miracle are present. IMPRESSION: Unremarkable postoperative exam. ACT 112: Negative or not required by law. Electronically signed by: Beto Morales M.D. 12/30/2024 12:43 PM PG Care Time/CCT Total # of Minutes Spent Total Time Spent with Patient: Total time spent is greater than 50% in coordination of care (as documented) at patient's floor/unit and/or counseling patient: [place] [address] SUB INP/OBS CARE 11/26MIN Patient Type Established History Problem Focused Exam Expanded Problem Focused Medical Decision Making Low Complexity Diagnoses Status post left knee replacement Z96.652 Aftercare following left knee joint replacement surgery Z47.1; Z96.652
--- NOTE | 2024-12-31 10:30 | Discharge Summary ---
Date of Service December 31, 2024 Admission HPI (Per Admitting) Mesfin is a 64-year-old male who has advanced arthritis of his left knee. I have been planning to do a left knee replacement. Unfortunately, he had a DVT of his right leg a year ago. He was on Eliquis for that and then taken off. He then had a DVT of his left leg in September of 2024. He has been on Eliquis for 3 months. A recent repeat ultrasound of his left leg showed no evidence of DVT. He has been cleared by his primary care physician and presents to my office today for evaluation. Admission Exam (Per Admitting) Appearance: This is a well-developed, well-nourished male in no apparent distress.Musculoskeletal:Physical exam of the left knee shows varus deformity, tenderness to palpation over the distal medial femoral condyle and over the medial joint line. Principal Diagnosis Same as "Discharge Diagnosis" noted below under Discharge Instructions. Discharge Exam GENERAL: AA&Ox3, NAD. Pleasant, affect is calm. Sitting in bed and appears comfortable. RESPIRATORY: Normal respiratory effort with no signs of distress. CHEST/AXILLA: Chest movement symmetrical. No deformities noted. CARDIOVASCULAR: No edema noted. SKIN: Elysian, warm and dry. MS/EXTREMITY: Knee dressing & JOSE LUIS wrap c/d/i. IRINA hose donned. + ankle dorsi/plantarflexion. NVI distally. Calf soft/NT. PT/DP pulses intact, 2+. Discharge Data Procedures Performed Operation Date: 12/30/24 10:00 Actual Procedures p Left Total Knee Arthroplasty(Left) - Martin Lopes DO Ordered Studies 12/30/24 10:32 US - OR guided needle placemen Routine Hospital Course (1) Status post left knee replacement: (2) Aftercare following left knee joint replacement surgery: Plan On December 30, 2024 Mesfin arrived at [facility] operating room and underwent a left total knee replacement without complications. Patient had a an adductor canal block and spinal anesthetic for the procedure. Postoperatively, patient was transferred to the general orthopedic floor in stable condition and eventually started onto Eliquis 5 mg for DVT prophylaxis as appropriate. Patient's hospital course was uneventful. On postoperative day #1, patient's vital signs were stable and pain was well-controlled. Patient was able to participate well with physical therapy, safely performing the necessary ambulation and range of motion exercises and properly demonstrating ADL tasks. Patient was then discharged home in stable condition, with [facility] services to begin. Patient will follow-up with orthopedics in 2 to 3 weeks for postoperative care. PG Care Time/CCT Total # of Minutes Spent Total Time Spent with Patient: Total time spent is greater than 50% in coordination of care (as documented) at patient's floor/unit and/or counseling patient: Discharge Plan Discharge Items Patient Disposition: Home - Home Health Services Reason For Visit: Left Knee Arthritis Discharge Diagnosis: Left knee replacement Activity: Per Instructions section Non-emergency contact: Surgeon Call non-emergency contact if: your pain is not controlled, your temperature is above 101, your wound has increased redness and your wound has increased drainage Follow-up/Referrals: Dillan Luna PA-C [Physician Java Developer With Security Clearance] - (as scheduled on 01/17/25 @ 11:30 am) Martin Tilley M.D. [Primary Care Provider] - Diet: Regular Addtl Attending Provider Instructions: Activity and Therapy Recommendations: * If you are using [facility] then therapy will be provided at your home until they feel you have accomplished all of your goals. * If you are using [facility] then Physical Therapy will be provided until they feel you are ready to start Outpatient Physical Therapy. * If you are not using home therapy then Outpatient Physical Therapy should start about 3-5 days from your day of surgery. Therapy will last about 6-10 weeks * It is important not to put a pillow under your knee when you are relaxing or sleeping. It is just as important to make sure you are getting your knee perfectly straight as it is to regain your knee bend. * You were shown a series of exercises in the hospital. Do these exercises three times each day including the exercises you were shown in physical therapy. * Get up and walk several times each day. For the first four weeks, try not to stand or walk for more than one hour at a time. If you do stand or walk for more than one hour, you will not hurt anything, but your leg will likely swell. * As you feel comfortable, you may change from the walker or crutches to a cane and then to independent walking. Medications: * Narcotic You will likely be sent home from the hospital with a prescription for the narcotic pain medication that worked best throughout your stay. * Cefadroxil -take the antibiotic twice a day for 10 days to help prevent infection. * Continue taking your Eliquis as prescribed. * Other medications may be prescribed for specific circumstances. If you have any questions, please call the office at . * Resume previous home medications unless otherwise instructed TEDs/Elastic Stockings: The white elastic stockings help limit swelling and prevent blood clots from forming in your legs.~ The more you wear them, the more they work. Wear them for six weeks. Dressing Care: The dressing can be changed after physical therapy on postop day #1. Daily dry dressing changes for a few days, especially if the incision is still draining some. If the incision is not draining then you may leave the miracle open to air. If there is a little bit of drainage or if the miracle are getting stuck on your clothing then cover the incision with a dry dressing. The miracle will be removed at your 2 week follow-up appointment. Showering: You may shower 5 days from the day of surgery as long as the incision is no longer draining. You may shower with the miracle exposed. Let soapy water run over the miracle and pat them dry. Do not scrub or soak the incision. Diet: You may resume your previous diet. Things To Watch For: * Drainage from the incision site that occurs more than one week after your surgery. * Increased redness at the incision site. * Fever above 102 degrees Fahrenheit. * Unusual chest pain or shortness of breath. * Call [facility] at with any of the above problems Follow-Up Visit: Follow-up with Dr. Lopes's office 2-3 weeks after your day of surgery. We will remove your miracle and answer any questions. If you have any additional questions or concerns, Dr Lopes is usually in the office at the same time and will be available An appointment was probably scheduled when you signed-up for surgery in the office. If you have any questions call Office Instructions: More detailed instructions as well as Frequently Asked Questions were provided in a folder by our office when you signed-up for surgery. Please review these instructions when you get home. If you have any further questions or concerns, please feel free to call the office at [phone] Pending Studies at Discharge: No Stand-Alone Forms: My [facility] Symptify, Smoking Cessation Medications and DC Order Prescriptions: New cefadroxil 500 mg capsule 500 mg PO BID 10 Days Qty: 20 0RF oxycodone 5 mg tablet 5 mg PO Q6H PRN (Reason: pain) Qty: 30 0RF Continued lisinopril 10 mg tablet 10 mg PO QAM propranolol 10 mg tablet 10 mg PO DAILY PRN (Reason: Anxiety) bumetanide 0.5 mg tablet 0.5 mg PO QAM Eliquis 5 mg tablet 5 mg PO QAM fluticasone furoate 50 mcg/actuation Blister With Device 50 mcg INHALATION DAILY Krames/Other Patient Handouts: Knee Surg Exercise After, Knee Replacement Total Dc Admission Data Admit Date/Time: 12/30/24 12:09 Attending Provider: Martin Lopes Admit Provider: Martin Lopes Primary Care Provider: Martin Tilley Other Interventions: Discharge Summary Assessment (RN) Last Done: 12/31/24 08:55
== END 2024-12-31 10:35 | disposition home health service (06) ==
LOC: ASU 07:52 → 3N 07:52

== ENCOUNTER 2025-08-25 07:49 | Observation (INO) ==
--- NOTE | 2025-08-16 12:56 | Anesthesiology Consultation ---
Date of Service August 16, 2025 Assessment & Plan (1) Encounter for pre-operative examination: Chart Review Chart Review: Acceptable Risk for Surgery and Patient NOT seen in Pre Admission Testing - Will leave to anesthesiologist discretion if 2 view CXR and/or coags needed DOS (for PNB) (had chest CTA 09/2024) Upon review of chart and discussion with Dr Gonzáles- patient is an acceptable candidate for Same Day [facility] Program from anesthesia perspective. Pending patient is motivated, has good support and surgeon's office completes [facility] preop requirements- patient may proceed with outpatient TSA. - No physical limitations or SOB with flight of stairs per [facility] nursing interview -Infectious Disease screening: Per [facility] nursing assessment on 08/16/25. No known infectious disease contacts in past 10 days or current infectious disease symptoms. No recent travel outside the country. Left TKA 12/30/24= Done under SAB at L4-5 with 1 attempt History Surgery Operation Date: 08/25/25 07:00 Proposed Procedures p Right Shoulder Anatomic or Reverse Arthroplasty Biceps Tenodesis - Cole Olivia MD s Open Right Carpal Tunnel Release - Cole Olivia MD Height/Weight Height: 6 ft 3 in Weight: 122.47 kg Allergies Allergy/AdvReac Type Severity Reaction Status Date / Time Penicillins Allergy Intermediate Hives Verified 08/16/25 12:14 Medications Home Medications Medication Instructions Recorded Confirmed Last Taken lisinopril 10 mg tablet 10 mg PO QAM 09/06/24 08/16/25 12/29/24 09:00 apixaban 5 mg tablet (Eliquis) 5 mg PO QAM 12/19/24 08/16/25 12/26/24 09:00 bumetanide 0.5 mg tablet 0.5 mg PO QAM 12/19/24 08/16/25 12/29/24 09:00 propranolol 10 mg tablet 10 mg PO DAILY PRN Anxiety 12/19/24 08/16/25 Unknown Past Medical History Medical History Cramping of hands right hand has been very swollen and painful- had emg done, showing this is carpal tunnel- will be discussing with surgeon to see if he can have this corrected during shoulder surgery Dyslipidemia History of COVID-19 (~2021) low grade fever; resolved HTN (hypertension) Hx of deep venous thrombosis 11/26/23- right leg- on eliquis x 6 months - then taken off 10/2024 - left leg- restarted on eliquis, left knee surgery cancelled- repeat US 11/30/24 at [facility] in [place], copy at dr. 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 Past Family History Family History Other No family history of adverse response to anesthesia Past Surgical History Surgical History History of left shoulder replacement (04/16/23) History of lingual frenulectomy (2019) History of tonsillectomy and adenoidectomy Hx of colonoscopy Hx of knee surgery (06/2012) unsure of side, meniscus repair Hx of nasal polypectomy Hx of removal of cyst x 2 left eye, left neck Hx of wisdom tooth extraction Status post left knee replacement (12/30/24) Social History Smoking Status: Never smoker tobacco type: cigarettes Do You Dip or Chew Tobacco: No Hx Alcohol Use: Yes Alcohol type: beer alcohol intake frequency: a few times a week Alcohol Intake Frequency Comment: 6 pack per week Hx Substance Use: No substance use type: does not use Lab Results Anesthesia Preop Results Results Anesthesia Widget: WBC 9.10 K/ul (4.8-10.8) 08/14/25 Hgb 13.8 g/dl (14.0-18.0) L 08/14/25 Hct 41.3 % (42.0-52.0) L 08/14/25 Plt 282 K/uL (130-400) 08/14/25 Na 142 mmol/L (136-145) 08/14/25 K 4.0 mmol/L (3.5-5.1) 08/14/25 Cl 105 mmol/L (98-107) 08/14/25 CO2 32 mmol/L (21-32) 08/14/25 BUN 17 mg/dl (6-23) 08/14/25 Creat 0.96 mg/dl (0.6-1.4) 08/14/25 Glucose Level 72 mg/dl (70-99(Fasting)) 08/14/25 Testing Electrocardiogram Date: 09/14/24 Findings: + NSR @ (81bpm) Nondiagnostic inferior Q waves When compared to EKG form April 03, 2023- no significant change was found per c ardio Chest X-Ray Date: 09/14/24 *1view* No acute cardiopulmonary findings. Echocardiogram Date: 04/11/21 EF: 55-60% LV Function: normal RWMA: + none Other Findings: no LVH Valvular Disease: + no significant valvular disease Other Testing Chest CTA 09/14/24 Unremarkable CTA of the chest. No pulmonary emboli identified.
[~2025-08-25 07:49] MED LIST changes: -BUPIVACAINE 0.25% PF 30 ML VIAL ONE; +DEXAMETHASONE SOD INJ 4 MG/ML VIAL ONE; +LIDOCAINE 2% 2 ML VIAL/AMP(20MG/ML) INFIL ONE; +MIDAZOLAM HCL 1 MG/ML 2ML VIAL ONE; +ONDANSETRON INJ 2 MG/ML 2 ML VIAL ONE; +PROPOFOL IV EMULSION 10 MG/ML 20 ML VIAL IV ONE; +ROCURONIUM BROMIDE 10 MG/ML 5 ML VIAL IV ONE; +SODIUM CHLORIDE 0.9% PF INJ 10 ML VIAL ONE
[2025-08-25] MEDS: ACETAMINOPHEN 500 MG TAB PO SCH ×2 (08:25→15:32)
[2025-08-25] MEDS: LR 15ML/HR IV SCH (08:25)
[2025-08-25] MEDS: LR 60ML/HR IV SCH (08:26)
--- NOTE | 2025-08-25 08:26 | History & Physical Report ---
Date of Service August 25, 2025 Assessment & Plan (1) Right carpal tunnel syndrome: (2) Arthritis of right glenohumeral joint: Plan The plan, after care, and consent were all reviewed. He is agreeable to proceed with the plan for right shoulder arthroplasty and right open carpal tunnel release. Based on his previous experience with his left TSA and TKA, he requested to stay overnight because of expected nausea. History of Present Illness Chief Complaint: Right shoulder pain and right hand pain Primary Care Provider: Martin Tilley 64-year-old male presents today to proceed with the plan for a right. He shoulder replacement and carpal tunnel release surgery he reiterates that his symptoms have been persistent and progressive. He has noticed his right hand numbness and tingling and pain in his long and ring finger worsening. There have been no other changes to his health history. Allergies Allergy/AdvReac Type Severity Reaction Status Date / Time Penicillins Allergy Intermediate Hives Verified 08/25/25 07:56 Home Medications Medication Instructions Recorded Confirmed Type lisinopril 10 mg tablet 10 mg PO QAM 09/06/24 08/25/25 History apixaban 5 mg tablet (Eliquis) 5 mg PO QAM 12/19/24 08/25/25 History bumetanide 0.5 mg tablet 0.5 mg PO QAM 12/19/24 08/25/25 History propranolol 10 mg tablet 10 mg PO DAILY PRN Anxiety 12/19/24 08/25/25 History Past Med/Surg History Problem List Right carpal tunnel syndrome Cramping of hands Tremor Arthritis of right glenohumeral joint Right rotator cuff tear Aftercare following left knee joint replacement surgery Status post left knee replacement (~12/2024) Osteoarthritis of knees, bilateral Bilateral knee pain Elevated PSA Dyslipidemia Medical History Cramping of hands right hand has been very swollen and painful- had emg done, showing this is carpal tunnel- will be discussing with surgeon to see if he can have this corrected during shoulder surgery Tremor hands, 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 horta office (shows resolution of dvt)-- no clots since - currently on Eliquis HTN (hypertension) Sleep apnea diagnosed 09/2024 -quit wearing cpap- unable to tolerate Nausea after anesthesia (04/2023) light headed and nauseated - after left shoulder surgery 04/2023, [facility] Dyslipidemia History of COVID-19 (~2021) low grade fever; resolved Surgical History Status post left knee replacement (12/30/24) Hx of wisdom tooth extraction History of lingual frenulectomy (2019) Hx of knee surgery (06/2012) unsure of side, meniscus repair History of left shoulder replacement (04/16/23) Hx of colonoscopy Hx of removal of cyst x 2 left eye, left neck Hx of nasal polypectomy History of tonsillectomy and adenoidectomy Family History Other No family history of adverse response to anesthesia Social History Smoking Status: Never smoker Tobacco Type: Cigarettes Second Hand Exposure: No; Do You Dip or Chew Tobacco: No; Tobacco Cessation Education Requested by Patient: No Hx Alcohol Use: Yes Alcohol type: beer Alcohol Intake Frequency: 2-4 x/Month Hx Substance Use: No Preferred Language: Eritrean Communication Ability: Effective Visual Impairment: No Limitations Hearing Ability: Normal Tube Inspector Required: No Beliefs That Will Affect Care: None Current Living Situation: Spouse Other Information That Helps Us Care for You: No Feels Safe at Home: Yes Safety Concerns: Feels Safe At This Time Assistive Devices: CPAP, Glasses and Other Assistive Devices Comment: dental implant Review of Systems All systems reviewed & are unremarkable except as noted in HPI & below. Physical Exam Right hand: Consistent exam for carpal tunnel syndrome, no change. DNVI. No overlying skin compromise. Right shoulder: Examination unchanged. Constitutional WD/WN, vitals as above no acute distress and not intoxicated appearing Respiratory normal respiratory effort; no labored breathing Cardiovascular Extremities: normal capillary refill Results & Data Results & Data Laboratory Results . Diagnostic Findings EMG/NCS performed since I saw him last in clinic is consistent with conduction abnormalities for carpal tunnel syndrome. PG Care Time/CCT Total # of Minutes Spent Total Time Spent with Patient: Total time spent is greater than 50% in coordination of care (as documented) at patient's floor/unit and/or counseling patient: Coding Level of Care Code None Diagnoses Right carpal tunnel syndrome G56.01 Arthritis of right glenohumeral joint M19.011
[2025-08-25] MEDS ORDERED: KETOROLAC 30 MG/ML VIAL IV PRN (08:31)
[2025-08-25] MEDS ORDERED: PROMETHAZINE HCL 6.25 MG in SODIUM CHLORIDE 0.9% 50 ML IV PRN (08:31)
[2025-08-25] MEDS ORDERED: LABETALOL HCL IV 5 MG/ML 20ML IV PRN (08:31)
[2025-08-25] MEDS ORDERED: ATROPINE SULFATE 0.1 MG/ML 10ML SYR IV PRN (08:31)
[2025-08-25] MEDS: ceFAZolin 3000MG 3,000 MG/72.5 ML BAG IV SCH (09:06)
[2025-08-25] MEDS ORDERED: TRANEXAMIC ACID / 0.7% NACL 1000MG/100ML BAG IV ONE ×2 (09:46→09:48)
[2025-08-25] MEDS: TRANEXAMIC ACID 100 MG/ML 10 ML VIAL IV ONE ×2 (09:50→11:55)
[2025-08-25] MEDS: BUPIVACAINE 0.5 % 5 MG/1 ML MPF 30ML VIAL ONE (10:18)
[2025-08-25] MEDS: LIDOCAINE 1% LOCAL 20 ML VIAL ONE (10:18)
[2025-08-25] MEDS ORDERED: ePHEDrine sulfate 50 MG/5 ML SYR ONE (10:51)
[2025-08-25] MEDS ORDERED: PHENYLEPHRINE 100MCG/ML 5ML SYR ONE (10:51)
[2025-08-25] MEDS ORDERED: SUGAMMADEX SODIUM 200 MG/2 ML VIAL IV ONE (11:49)
[2025-08-25] MEDS ORDERED: PHENYLEPHRINE HCL 10 MG/ML VIAL ONE (12:05)
[2025-08-25] MEDS ORDERED: diphenhydrAMINE Capsule 25 MG CAP PO PRN (12:51)
[2025-08-25] MEDS ORDERED: MAGNESIUM HYDROXIDE SUSP 30 ML UDC PO PRN (12:51)
[2025-08-25] MEDS ORDERED: ONDANSETRON INJ 2 MG/ML 2 ML VIAL IV PRN (12:51)
[2025-08-25] MEDS ORDERED: NALOXONE HCL 0.4 MG/1 ML VIAL/CARP IV PRN (12:51)
[2025-08-25] MEDS ORDERED: METOCLOPRAMIDE HCL INJ 5 MG/ML 2 ML VIAL IV PRN (12:51)
[2025-08-25] MEDS ORDERED: PROPRANOLOL HCL 10 MG TAB PO PRN (12:53)
--- NOTE | 2025-08-25 13:02 | Operative Report ---
PG Post Operative Report Pre & Post Diagnosis Operation Date: 08/25/25 09:10 Pre-Op Diagnosis: Right carpal tunnel syndrome, Arthritis of right glenohumeral joint, biceps tendonitis Post-Op Diagnosis: Right carpal tunnel syndrome, Arthritis of right glenohumeral joint, biceps tendonitis I identified the patient and participated in the time-out.: Yes Procedure Operation Date: 08/25/25 09:10 Actual Procedures p Right Shoulder Anatomic Arthroplasty, Biceps Tenodesis(Right) - Cole Olivia MD s Open Right Carpal Tunnel Release(Right) - Cole Olivia MD Surgeon Cole Olivia MD Radio Frequency Technician Grace Silva and Imelda Martini PA-C Estimated Blood Loss 150 Findings See Below Angel [employer] comprehensive anatomic shoulder arthroplasty was performed: Stem17 mm micro, [place] size 5 Glenoid with trabecular Metal Post, 54x24 58 humeral head with standard taper adaptor. EXAMINATION UNDER ANESTHESIA: Preoperative exam under anesthesia revealed the followin degrees of forward flexion, 5 degrees external rotation at the side, 100 degrees of abduction which released with gentle manipulation to approximately 120, 10 degrees of external rotation and 10 degrees of internal rotation with the arm abducted. Postoperatively, range of motion parameters after implantation of prosthesis revealed a stable prosthesis with range of motion parameters as follows: 130 of forward flexion, 45 of external rotation at the side -35 to subscap repair tension, 120 of abduction, 90 of external rotation with the arm abducted, 20 of internal rotation with the arm abducted. The patient's safe range of motion included the ability to get to the back of the head. Internal rotation to the belly without tension. Specimens Humeral head for pathology Drains none Anesthesia Type General Regional Complications none Disposition Accompanied Patient To Recovery: No Disposition: Recovery Room Indications 64-year-old male with chronic and progressive shoulder pain consistent with glenohumeral arthritis after a satisfactory left total shoulder arthroplasty years ago. He had maximized nonoperative measures, was interested in more definitive treatment. I reviewed the risks, benefits, expected outcomes, required rehabilitation, techniques, and alternatives to shoulder arthroplasty. After discussion, he is interested in proceeding. During the preoperative workup, we also detected that he had carpal tunnel syndrome. Symptoms been progressive for years. I offered concomitant carpal tunnel release to avoid the cramping hand pain that he saw on his other side. He was interested proceeding with both the anatomic or reverse total shoulder arthroplasty in the carpal tunnel release. Informed consent was obtained in the clinic and confirmed this morning to proceed. Description of Procedure The patient was identified in the preoperative holding area. The operative extr emity was marked. Regional block was administered by Anesthesia. The patient was then brought to the operating room and placed supine. Preliminary time-out procedure was performed. All were in agreement. General endotracheal anesthesia was induced without any issues. The patient was sat up in around 40-45 degrees of inclination in the beachchair position. Exam under anesthesia was performed confirming the above findings. Preoperative antibiotics were administered. Sequential compressive devices were placed on the bilateral lower extremities for DVT prophylaxis. Bony prominences were inspected, well-padded and free of any evidence for peripheral nerve compression. The operative upper extremity was then prepped and draped in a normal standard fashion, with use of padded barclay stand. Prior to incision, a second time-out procedure was performed confirming the patient, site, laterality and the procedures. All were in agreement. 1. Open carpal tunnel release Surgical timeout was confirmed once again. Incision was made in the usual location for carpal tunnel release along the radial border of the flexed fourth digit, extended from Medeiros's cardinal line to the wrist flexor crease. Incision was made and dissection was carried out using tenotomy scissors through the palmar fat. Small self-retaining retractor was placed. Superficial palmar fascia was identified and incised longitudinally. The retractor was re- positioned. Fibers of the pollicis brevis were gently and bluntly elevated radially and away from the carpal tunnel ligament. The ligament was identified in its full extent. A Sehn retractor was placed proximally and distally, as needed. The carpal ligament was incised using the tip of the Micro-[place] blade longitudinally, starting distally moving proximally. Tenotomy scissors were used to complete the release proximally through the distal aspect of the forearm fascia. Tourniquet was left down. There was adequate hemostasis. Gentle irrigation was used. The wound was then closed with a simple suture, consisting of 3-0 nylon. The hand was provisionally dressed with a 4 x 4 and a Tegaderm for occlusion. A stockinette was then applied to the forearm contained by George. ChloraPrep was then placed on the exposed shoulder. We then proceeded with the usual [place] coverage of the entire surgical site after marking the incision. 2. Right shoulder open anatomic total shoulder replacement with alliance Cemented Glenoid component and with patient specific guide: A deltopectoral incision was utilized. Incision was carried out sharply and with electrocautery through the skin and subcutaneous tissues. The deltopectoral interval was developed. The cephalic vein was taken lateral. Subdeltoid space was developed bluntly. A deltoid brown retractor was placed to retract the deltoid laterally and superiorly. 1 cm of the superior border of the pectoralis major tendon insertion site was released in standard fashion to improve exposure. Clavipectoral fascia was removed with electrocautery. Extensive subacromial bursitis was encountered and this was completely removed with a Bovie. The lateral aspect of the conjoined tendon was then followed to its insertion site on the coracoid. The conjoined tendon was retracted medially. The biceps tendon was identified, enlarged consistent with tendinopathy. It was released from the sheath using a Bovie and followed up into the rotator interval. A tenodesis was performed to the pectoralis major tendon as will be discussed in further detail below. A sharp Hohmann retractor was then placed into the interval and into the joint. Subscapularis tendon was still present and attached on the lesser tuberosity. The articular surface of the humeral head could be appreciated. The subscapularis tendon was then tagged with two ZB Max Braid sutures to gain control. A subscapularis peel was performed with a sharp #10 blade. Inferior capsular tissue was then released. The humeral head dislocated with successive extension and external rotation. Humeral neck releases were performed electrocautery with external rotation and a Hohmann retractor posteriorly to forward subluxate the humeral head. Inferior neck osteophytes were released all the way to 7:00. The rotator cuff insertion was without significant pathology. There was no evidence of tears. The subscapularis had been in good condition. The biceps tendon had evidence of tenosynovitis, impingement, and inflammatory degeneration. The top of the humeral head was identified. A starting awl was used sound the humeral canal. The bone quality was moderate. We opted to set the retroversion of the humeral cut at around 30 degrees of retroversion to match [place] retroversion. We reamed up to size 18. The guide was fixed with 2 pins after adjustment for positioning. The humeral head resection was then made in parallel fashion to the guide. Successive trial broaches were then broached up to a size 17, which gave us excellent press-fit. The trial stem was left in place. Humeral protecting cap was then placed. We then proceeded over to the glenoid. An anterior glenoid neck retractor was placed. The MGHL and SGHL were released off of the muscular portion of the subscapularis being mindful of palpating and identifying the axillary nerve to make sure it was free of injury during releases. Next, the interval between the IGHL and the muscular portions of the subscapularis was identified. My finger was on the axillary nerve to protect it during releases. The IGHL was then released up to around the 7 o'clock position. A blunt retractor was then placed to retract the humerus posteriorly. A sharp Hohmann retractor was placed at the 12 o'clock position. The glenoid deformity was evaluated with assistance with the bone model. Extraneous capsulolabral tissue was dissected to reveal the bone anatomy. This confirmed our decision to proceed with preoperative virtual planning. The arm was placed around 30 degrees of flexion, 90 degrees of external rotation and slight adduction to distract the humerus posteriorly and inferiorly in line with her humeral cut that was protected. Labrum was circumferentially removed including the biceps tendon stump with a Bovie. A patient specific guide was used to place an initial guide pin, followed by the more superior pin. The patient specific guide was then removed. The custom reamer guide was placed on the superior pin and the reamer was brought down the central pin. Reaming was conducted based on the guide and preoperative plan for implant size. Irrigation was used and we confirmed adequate reaming. The central post drill was then brought down the central pin. This was irrigated again. The drill guide for the pegs was placed down over the pin and locked into the socket for the central post. The peg positions were then drilled, and this guide was removed. Copious irrigation was performed to irrigate out the joint. The trial according to our preoperative plan was placed. It had good fit to the glenoid and coverage. The trial was then removed. The final implant was opened on the back table. Cement mixing was commenced. Mixing 1 for 60 seconds. Once the cement was of good consistency, the backside of the polyethylene implant was coated with a thin layer, ensuring not to put any on the central trabecular metal post. The pressurized cement gun was used to place cement in each of the peg holes under pressure. The final glenoid implant was then introduced and deployed into its socket and peg holes. It was tamped down with the impactor and held firmly while the cement cured. Irrigation was conducted around. Extraneous cement was curetted from the margins and removed from the wound. Humerus was then brought back into view with external rotation, deltoid brown retractor and multiple blunt Homans. The trial humeral head matching are measured humeral head cut was then fixed onto the trial broach. I rotated the head to cover the cut surface using the eccentricity of the system. It was tightened in place. The humerus was then reduced onto the glenoid with the arm in abduction and external rotation. The arm was taken through a physiologic range of motion. No evidence for impingement. No evidence for kick off. Appropriate capsular tension was found. About 50% posterior translation was present with posterior directed force. I did upsize the head once to matched our humeral head cut. This was slightly bigger than his contralateral side but there was good coverage of the humeral head cut. Thus, the trials would be a most appropriate for stability. Next, the trial humeral trial components were removed. The final stem prosthesis was then brought onto the field. The head was dialed into into the eccentricity that matched our trial. The head was tamped on the back table to secure the offset that match the desired humeral cut coverage. Humeral canal was copiously irrigated. 3 2.0 mm drill holes were then placed in the bicipital groove just lateral to the lesser tuberosity, and 2 were placed to the medial side of the footprint. Angel [employer]omet max braid suture was passed through for later subscapularis repair. The final humeral component was then brought back on to the field and seated firmly into the humerus, securing our subscap sutures. Excellent press-fit was achieved. The humeral head component was then introduced onto the trunnion, and the [place]o taper was locked on using a mallet and impactor. Thus, this completed the humeral component implantation. With the final components in place, humeral component was then reduced onto the glenoid and final postoperative range of motion assessment was performed. Stability confirmed. Thorough pulse lavage irrigation was performed to evacuate all debris and lavage the capsule, surrounding soft tissues, and components. Dilute Betadine irrigant was then run through the joint and left in place for several minutes while we prepared for closure and subscap repair. The Rich Retractor was placed immediately just inside the conjoint tendon, with the deltoid retracted laterally. The arm was placed in internal rotation. The subscapularis was then repaired to the humerus using a Jaswant-Den configuration and a crossing suture bridge configuration with the 6 high-grade tape sutures that were passed about the lesser tuberosity before implantation. The subscap repair had appropriate tension. External rotation about 45 degrees was achieved before excessive tension developed. This completed the open reverse total shoulder replacement. Final lavage with a dilute Betadine was performed. This was followed by copious normal saline irrigation. 2. Open biceps tenodesis: As dictated above, tendinopathy of the biceps tendon was noted. A tenodesis was opted. The tendon was released from the bicipital sheath using a Bovie and then tenodesed to the pectoralis major tendon using a two #2 Arthrex FiberWire stitches in a [id number] fashion. The tendon was then followed up as proximal as could be visualized and then tenotomized. Remaining stump was removed just proximal to the tenodesis site. This completed the open biceps tenodesis. The wound was copiously irrigated. The deltopectoral incision was closed with interrupted #1 Vicryl stitches.. Subcutaneous adipose tissues were closed with #0 Vicryl suture in buried, interrupted fashion. Dermal closure was accomplished using buried knot 20 Vicryl. Final skin closure was with miracle. The wound was dressed with sterile Xeroform, sterile gauze, ABDs, and contained by Tegaderm dressings. The patient was placed in a postoperative sling and turned over to the anesthesia team. The patient tolerated procedure well, was extubated in the operating without complication, and transferred to the PACU in stable condition. DISPOSITION: The patient will remain in sling for a total of 6 weeks. Hand, wrist, and elbow range of motion exercises may be initiated. After 6 weeks, the sling will be discontinued. Formal therapy will be initiated starting with gentle passive range of motion and active range of motion. No strengthening will be permitted before 12 weeks. When strengthening is allowed, only gentle strengthening will be allowed. Physician pediatric physician assistant attestation: Grace Cervantes and Skyla Martini, PA-C was present and scrubbed for the duration of the case. Skilled assistance was essential to prepping/draping, patient positioning, retraction, and assistance with wound closure. I attest to the content of the Intraoperative Record and any orders documented therein. Any exceptions are noted below.
--- NOTE | 2025-08-25 13:29 | XRay Report ---
XR shoulder RT min 2V routine HISTORY: 64 years-old Male Post shoulder surgery right shoulder arthroplasty COMPARISON: Radiographs 06/09/2025 TECHNIQUE: 2 views of the right shoulder FINDINGS: Satisfactory alignment of the right shoulder arthroplasty. Overlying skin miracle are present with so ft tissue swelling and expected postoperative deep tissue air. No acute fracture or unexpected opaque foreign body. Moderate degeneration of the AC joint. Right lung base atelectasis. IMPRESSION: Satisfactory alignment of the total joint arthroplasty. ACT 112: Negative or not required by law. The above report was generated using voice recognition software. It may contain grammatical, syntax o r spelling errors. Electronically signed by: Dillan Dennis M.D. 08/25/2025 1:28 PM
--- NOTE | 2025-08-25 13:36 | Anesthesiology Progress Note ---
Date of Service August 25, 2025 Anesthesia Post Procedure Vital Signs Vital Signs: Temp Pulse Resp BP BP Pulse Ox O2 Del Method 08/25/25 13:30 95 H 20 115/71 96 Oxymask 08/25/25 13:20 90 16 122/75 94 Oxymask 08/25/25 13:10 91 H 18 122/57 L 93 Oxymask 08/25/25 13:00 96 H 19 143/71 H 96 Oxymask 08/25/25 12:52 36.0 C L 98 H 12 140/72 96 Oxymask 08/25/25 08:08 36.5 C 79 18 130/90 98 Room Air O2 Flow Rate 08/25/25 13:30 5 08/25/25 13:20 5 08/25/25 13:10 11 08/25/25 13:00 11 08/25/25 12:52 11 08/25/25 08:08 Transfer of Care Handoff Completed per policy Notes Mental Status: alert / awake / arousable Patient Amnestic to Procedure: Yes Nausea / Vomiting: adequately controlled Pain: adequately controlled Airway Patency, RR, SpO2: stable & adequate BP & HR: stable & adequate Hydration State: stable & adequate Anesthetic Complications: no major complications apparent
[2025-08-25] MEDS ORDERED: ceFAZolin 330 MG/ML 1 GM VIAL ONE (13:47)
[2025-08-25] MEDS: BUPIVACAINE LIPOSOME 1.3% 133 MG/10 ML VIAL ONE (15:16)
[2025-08-25] MEDS: SODIUM CHLORIDE 0.9% 1,000 ML IV SCH (15:16)
[2025-08-25] MEDS: DOCUSATE SODIUM 100 MG CAP PO SCH (20:31)
[2025-08-25] MEDS: SENNA 8.6 MG TAB PO SCH (20:31)
[2025-08-26] MEDS: COUGH DROP (SUGAR FREE) LOZ 24 LOZ/1 BOX BUCCAL ONE (06:55)
[2025-08-26] MEDS: MULTIVITAMIN TAB PO SCH (09:19)
[2025-08-26] MEDS: APIXABAN 5 MG TABLET PO SCH (09:19)
[2025-08-26] MEDS: BUMETANIDE 1 MG TAB PO SCH (09:19)
[2025-08-26 09:54] VITALS: RESP 18; TEMP 98; O2SAT 93
--- NOTE | 2025-08-26 10:11 | Orthopedic Progress Note ---
Date of Service August 26, 2025 Assessment & Plan (1) Status post replacement of right shoulder joint: (2) Right carpal tunnel syndrome: (3) Arthritis of right glenohumeral joint: (4) History of carpal tunnel surgery of right wrist: Plan Uncomplicated progress on POD1. Stable for discharge - outpatient PT at [place] - will refer - f/u 2 weeks Subjective No issues overnight. Denies nausea. Feels comfortable to go. Review of Systems All systems reviewed & are unremarkable except as noted in HPI & below. Physical Exam RUE: Full motor to hand. SILT hand and axillary nerve. Dressing c/d/i. Constitutional WD/WN, vitals as above no acute distress and not intoxicated appearing Respiratory normal respiratory effort; no labored breathing Cardiovascular Extremities: normal capillary refill Results & Data Results & Data Laboratory Results . Diagnostic Findings . PG Care Time/CCT Total # of Minutes Spent Total Time Spent with Patient: Total time spent is greater than 50% in coordination of care (as documented) at patient's floor/unit and/or counseling patient: Coding Level of Care Code 89504 Post Operative Follow-Up Diagnoses Status post replacement of right shoulder joint Z96.611 Right carpal tunnel syndrome G56.01 Arthritis of right glenohumeral joint M19.011 History of carpal tunnel surgery of right wrist Z98.890
[2025-08-26 10:29] VITALS: BP 130/90; PULSE 92
== END 2025-08-26 10:30 | disposition home or self-care (01) ==
LOC: ASU 07:49 → 3W 07:49